=== PATIENT | female | born 1980 | race Caucasian/White ===

== ENCOUNTER → 2017-07-03 | Outpatient (CLI) | payer OTHER | LOC: FIMAGING 09:42 | PROVIDERS: ATTEND Obstetrics & Gynecology | DX: O09.522 Supervision of elderly multigravida, second trimester (principal); Z3A.19 19 weeks gestation of pregnancy ==

== ENCOUNTER → 2017-08-08 | Outpatient (CLI) | payer OTHER | LOC: FIMAGING 08:24 | PROVIDERS: ATTEND Obstetrics & Gynecology | DX: O09.522 Supervision of elderly multigravida, second trimester (principal); O34.219 Maternal care for unspecified type scar from previous cesarean delivery; Z3A.24 24 weeks gestation of pregnancy ==

== ENCOUNTER 2017-09-29 18:15 | Observation (INO) | payer OTHER | END 2017-09-29 20:00 | disposition home or self-care (01) | LOC: FLD 18:15 | PROVIDERS: ADMIT Obstetrics & Gynecology; ATTEND Obstetrics & Gynecology | DX: O99.89 Other specified diseases and conditions complicating pregnancy, childbirth and the puerperium (principal); Z3A.32 32 weeks gestation of pregnancy | CPT/HCPCS: G0378 ×2 ==

== ENCOUNTER 2017-11-11 04:11 | Inpatient (IN) | payer OTHER ==
--- NOTE | 2017-10-25 15:35 | GHP ---
[f rep st] PREOP HISTORY AND PHYSICAL DATE OF PLANNED PROCEDURE: 11/16/2017. PLANNED PROCEDURE: Repeat low transverse section. INDICATIONS: Patient is a 36-year-old 4, para 1-0-2-1, who will be 39+ weeks gestation. She has a history of a previous low transverse section for arrest of descent and desires a repe at section. The patient's estimated date of confinement is 11/23/2017, dated by last menstr ual period consistent with a 7-week ultrasound. Patient initiated care at [facility]. She transferred to [facility] at 22 weeks' gestation. Her has been uncom plicated. She has had several episodes of decreased movement, for which she has had increased surveillance in , but baby has returned to its normal baseline movement status. PAST MEDICAL HISTORY: Negative. MEDICATIONS: vitamins. PAST SURGICAL HISTORY: section, termination of , oral surgery x2, and tonsillectom y. ALLERGIES: No known drug allergies. SOCIAL HISTORY: Patient is . She lives with her and their other child. She denies t obacco, alcohol, or drug use. FAMILY MEDICAL HISTORY: Noncontributory. 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 Periods every 28-32 days, lasting 4 days. She is a 4, pa ra 1-0-2-1. In 2003, she had a voluntary termination of . In 11/2007, she had a primary lo w transverse section of a 7-pound 14-ounce male infant. Diagnosis was for arrest of descent . Baby was occiput posterior, and patient had pushed for 3 hours. In 2016, she had a chemical pregn tomas, which resolved spontaneously, and current has been uncomplicated. Patient does have a history of abnormal Pap smears, but she has not had any procedures. She denies any history of any other sexually transmitted diseases besides HPV. REVIEW OF SYSTEMS: Ten-point review of systems is negative. Positive movement. No loss of fl uid. No vaginal bleeding. Denies any headache or changes in vision. PHYSICAL EXAMINATION: VITAL SIGNS: Stable. GENERAL APPEARANCE: Is alert and oriented x3. PSYCH: Exam is appropriate affect. MUSCULOSKELETAL: Grossly intact. NECK: Mobile and supple. HEART: R ate is regular/regular. LUNGS: Clear to auscultation bilaterally. ABDOMEN: Gravid, nondistended, nontender. No organomegaly is noted. EXTREMITIES: Reveal no calf tenderness or edema. LABORATORY DATA: labs: Blood type A positive. Antibody screen negative. Rubella immune. GBS is pending. HBsAg negative. HIV negative. Her 50 g glucose was 93. ASSESSMENT AND PLAN: A 36-year-old 4, para 1-0-2-1, who will be 39 weeks' gestation, who has a history of a previous low transverse section, who declines trial of labor and plans for a repeat section. She declines tubal ligation. Risks and benefits were reviewed with the april serra, and the patient has been properly consented. /[id number]/MODL
[2017-11-11] MEDS ORDERED: OXYTOCIN/RINGERS LACTATE 1,000 ML IV PRN (04:32)
[2017-11-11] MEDS ORDERED: IBUPROFEN 600 MG TAB PO PRN (04:32)
[2017-11-11] MEDS ORDERED: LIDOCAINE 1% 300 MG/30 ML SDV SC PRN (04:32)
[2017-11-11] MEDS ORDERED: LR 1,000 ML IV PRN (04:32)
[2017-11-11] MEDS ORDERED: EPSOM SALT 454 GM TP PRN (04:32)
[2017-11-11] MEDS ORDERED: MISOPROSTOL 200 MCG TAB PR PRN (04:32)
[2017-11-11] MEDS ORDERED: OLIVE OIL 118 ML BTL MISC PRN (04:32)
[2017-11-11] MEDS ORDERED: TERBUTALINE SULFATE 1 MG/ML VIAL IV PRN (04:32)
[2017-11-11] MEDS ORDERED: LR 500 ML IV ONE (04:50)
[2017-11-11] MEDS ORDERED: ceFAZolin 2 GM/DEXTROSE 100 ML IV ONE (04:50)
[2017-11-11] MEDS ORDERED: LR 1,000 ML IV SCH (05:00)
[2017-11-11] MEDS ORDERED: TERBUTALINE SULFATE 1 MG/ML VIAL ONE (05:32)
[2017-11-11] MEDS ORDERED: MISOPROSTOL 200 MCG TAB ONE (05:32)
[2017-11-11] MEDS ORDERED: AMMONIA AROMATIC 1 EACH AMP IH ONE (05:32)
[2017-11-11] MEDS ORDERED: OXYTOCIN 10 UNIT/ML VIAL ONE (05:32)
--- NOTE | 2017-11-11 05:34 | PDGENHP ---
History and Physical - Chief Complaint spont rupture of membranes - History of Present Illness 36 at 38w3d with gush of fluid at 0307. Had pelvic pressure last evening, but then awoke to void, gush of fluid, and contractions started shortly after that. course c/b hx of prior C/S - desires repeat and had low lying anterior placenta - moved away from os by 28 wk US. Had care with [facility] until transfer at 22 weeks. Good FM, no VB. NO ssx PIH. Son is 10 yr old. labs all normal, including neg NIPT Rubella Imm A Pos GBS neg Tdap given 10/05/17 Ob hx: 12/20/07 40 wk LTCS after pushing x 3 hr, male, 7#14oz PMH: migraines, anxiety, right clavicle fracture x2 PSH: 11/26 C/S, tonsillectomy, wisdom teeth Medications: PNV + DHA All: NKDA Soc: -/-/-, husb = Will. O: vs 36.2 101 115/78 gen - pleasant female, NAD CV - RRR chest - CTAB abd - gravid, soft, NT when not marco a. ext - calves NT, no edema SVE - 3/60/-2 A/P: 36 with SROM, early labor, prior C/S - desires elective repeat. WRitten informed consent obtained, will proceed with R-C/S when labs have returned. Rosana Oneill MD, FACOG [facility] History Information - Allergies/Home Medication List Allergies/Adverse Reactions: No Known Allergies Allergy (Unverified 09/29/17 18:30) Home Medications: [place] 3 500 Softgel 1 tab PO DAILY 09/29/17 [Last Taken 09/28/17 21:00] Dha 1 tab PO DAILY 09/29/17 [Last Taken 09/28/17 21:00] I have personally reviewed and updated: family history, medical history, social history, surgical history Review of Systems Review of Systems: ROS: 10pt was reviewed & negative except for what was stated in HPI & below Physical Exam Physical Exam:
[2017-11-11 05:35] LABS: PLATELET COUNT 216 10^3/uL (150-400)
--- NOTE | 2017-11-11 06:24 | PREANESOB ---
Obstetric Pre-Anesthesia Info - General Info Proposed Procedure: Repeat C section NPO Start Time: 21:00 : 4 Para: 1 DYLON: 11/23/17 Gestational Age: 38 week(s) and 2 day(s) - Info Status: Full Term Monitors: External FHR Pattern: Reassuring - Labor Status Cervical Dilation per last OB SVE: 3 Time of last SVE per OB: 06:12 Rupture of Membranes Time: 03:00 Amniotic Fluid Color: Clear PIH: No Magnesium Sulfate in Use: No Section History: Repeat Labor Epidural: No Anesthesia Allergies/Adverse Reactions: Allergy/AdvReac Type Severity Reaction Status Date / Time No Known Allergies Allergy Unverified 09/29/17 18:30 Home Medications: Medication Instructions Recorded [place] 3 500 Softgel 1 tab PO DAILY 09/29/17 Dha 1 tab PO DAILY 09/29/17 Visit Medications: Generic Name Dose Route Start Last Admin Trade Name Freq PRN Reason Stop Dose Admin Lactated Ringer's 1,000 mls @ 0 mls/hr 11/11/17 04:32 Lr IV 11/12/17 04:31 PRN PRN SEE PROTOCOL CONDITIONS Protocol Per Protocol Oxytocin/Lactated Ringer's 1,000 mls @ 125 mls/hr 11/11/17 04:32 Pitocin 20 Units/Lr (Premix) IV PRN PRN Post bleeding Lactated Ringer's 1,000 mls @ 125 mls/hr 11/11/17 05:00 Lr IV 11/12/17 04:59 CONT DELMA Ibuprofen 600 mg 11/11/17 04:32 Motrin PO ONCE PRN post , pain Lidocaine HCl 300 mg 11/11/17 04:32 Lidocaine Hcl 1% SC 05/10/18 04:31 ONCE PRN episiotomy Magnesium Sulfate 454 gm 11/11/17 04:32 Epsom Salt TP 05/10/18 04:31 Q1H PRN perineal discomfort Misoprostol 800 - 1,000 mcg 11/11/17 04:32 Cytotec FL ONCE PRN Vaginal Atony/Bleeding [place] Oil 118 ml 11/11/17 04:32 Sweet Oil MISC 05/10/18 04:31 ONCE PRN perineal massage Terbutaline Sulfate 0.25 mg 11/11/17 04:32 Brethine IV 05/10/18 04:31 ONCE PRN Tachysystole Discontinued Medications Generic Name Dose Route Start Last Admin Trade Name Ranjan PRN Reason Stop Dose Admin Ammonia (Aromatic Spirit) Confirm 11/11/17 05:32 Ammonia Aromatic Administered 11/11/17 05:33 Dose 1 each IH .STK-MED ONE Cefazolin Sodium/Dextrose 100 mls @ 200 mls/hr 11/11/17 04:50 Ancef 2 Gm IV 11/11/17 05:19 ONCALL ONE Protocol Lactated Ringer's 500 mls @ 0 mls/hr 11/11/17 04:50 Lr IV 11/11/17 04:51 ONCE ONE As Directed Misoprostol Confirm 11/11/17 05:32 Cytotec Administered 11/11/17 05:33 Dose 1,000 mcg .ROUTE .STK-MED ONE Oxytocin Confirm 11/11/17 05:32 Pitocin Administered 11/11/17 05:33 Dose 40 unit .ROUTE .STK-MED ONE Terbutaline Sulfate Confirm 11/11/17 05:32 Brethine Administered 11/11/17 05:33 Dose 1 mg .ROUTE .STK-MED ONE - Anesthesia History Response to Local Anesthetics: Normal Family Anesthesia History: Negative - Social History Substance Use/Abuse: Denies - Vital Signs Blood Pressure: 115/78 Heart Rate: 101 Respiratory Rate: 20 Height/Weight (Nursing): Height 160.02 cm Weight: 71 kg - Focused Exam Neck exam: FROM Mallampati Score: Class 1 Mouth exam: normal dental/mouth exam Pulmonary: no respiratory distress, no rales or rhonchi Cardiovascular: regular rate and rhythym, no murmur, rub, or gallop Labs: 11/11/17 05:20 - Plan Consent Signed and on Chart: Yes
[2017-11-11] MEDS ORDERED: CITRIC ACID/SODIUM CITRATE 30 ML UDCUP ONE (06:25)
[2017-11-11] MEDS ORDERED: morphINE PF 5 MG/10 ML INJ ONE (06:34)
[2017-11-11] MEDS ORDERED: PHENYLEPHRINE HCL 100 MCG/ML SYR ONE (06:35)
[2017-11-11] MEDS ORDERED: GLYCOPYRROLATE 0.2 MG/1 ML VIAL ONE (07:05)
[2017-11-11] MEDS ORDERED: OXYTOCIN 100 UNITS/10 ML VIAL ONE (07:30)
[2017-11-11] MEDS ORDERED: fentaNYL 100 MCG/2 ML INJ ONE (07:44)
[2017-11-11] MEDS ORDERED: SIMETHICONE 80 MG TAB CHEW PO PRN (08:13)
[2017-11-11] MEDS ORDERED: PROMETHAZINE HCL 25 MG/ML INJ IVP PRN (08:13)
[2017-11-11] MEDS ORDERED: oxyCODONE IR 5 MG TAB PO PRN (08:17)
--- NOTE | 2017-11-11 08:22 | POSTOPPROG ---
Post Op Note Date of Operation: 11/11/17 Surgeon: Rosana Oneill Repair Order Clerk: Rowena Vaughan MD needed for adequate retraction and exposure Anesthesiologist: Hui Quezada MD Anesthesia: Spinal Pre-op Diagnosis: elective repeat section Post-op Diagnosis: same Indication: rupture of membranes and onset of labor at 38w3d Procedure: repeat low transverse section Findings: normal appearing uterus, tubes and ovaries, female infant 3112g Inf/Abcess present in the surg proc area at time of surgery?: No EBL: 500-1000 Total fluids administered: 800 Complications: none
[2017-11-11] MEDS ORDERED: NALOXONE HCL 0.4 MG/ML INJ IVP PRN (08:46)
[2017-11-11] MEDS ORDERED: ONDANSETRON 4 MG/2 ML VIAL IVP PRN (08:46)
[2017-11-11] MEDS ORDERED: HYDROmorphONE/DILAUDID 1 MG/ML INJ IVP PRN (08:49)
[2017-11-11] MEDS ORDERED: fentaNYL 100 MCG/2 ML INJ IVP PRN (08:49)
--- NOTE | 2017-11-11 09:16 | GOP ---
[f rep st] OPERATIVE REPORT DATE OF OPERATION: 11/11/2017 SURGEON: Rosana Oneill MD BI CONSULTANT: Rowena Vaughan MD, needed for adequate retraction and exposure. PREOPERATIVE DIAGNOSIS: Elective repeat section in the setting of rupture of membranes and onset of labor. POSTOPERATIVE DIAGNOSIS: Elective repeat section in the setting of rupture of membranes and onset of labor. PROCEDURE PERFORMED: Repeat elective low transverse section. SURGEON: Rosana Oneill MD COMPLICATIONS: None. FLUIDS REPLACED: 2200 mL. URINE OUTPUT: 50 mL. FINDINGS: Normal appearing uterus, tubes, ovaries, delivery of a female , 3112g, Apgars 8 at 1 minute, 8 at 5 minutes, from cephalic NIKIA presentation ESTIMATED BLOOD LOSS: 800 mL. INDICATIONS: A 36-year-old 4, para 1-0-2-1, who presented in early labor after spontaneous rupture of membranes at 38 weeks and 3 days gestation. She has a history of a prior section and desired a repeat section. Her course was otherwise uncomplicated. Written informed consent was obtained, and the patient was taken to the operating room. DESCRIPTION OF PROCEDURE: Once spinal anesthetic was deemed adequate, she was placed in the dorsal supine position with a leftward tilt. A Gorman catheter was placed. The abdomen was sterilely prepped and draped in a standard fashion. A time out was performed. She had just received 2 gm of Ancef IV. A Pfannenstiel skin incision was made and taken down sharply to the fascia through the previous skin incision. The fascial incision was extended laterally in a sharp fashion. The rectus muscles were in the midline and the peritoneum was entered bluntly. A bladder flap was created in standard fashion and the bladder blade was place over the flap. A hysterotomy was made and extended laterally in a blunt fashion. Release of clear fluid was noted. The infant's vertex was able to be grasped and elevated through the incision. Bulb suction was performed. With fundal pressure, the remainder of the infant was able to be delivered without difficulty. One nuchal cord was reduced prior to delivery. Delayed cord clamping for 1 minute was performed. During this time, the baby was bulb suctioned and dried. The cord was then cut and clamped, and the infant was handed to the awaiting nurse practitioner. Cord blood was obtained with the cord blood collection kit brought by the patient. The placenta was then delivered with the assistance of uterine massage. The uterus was exteriorized and cleared of all clots and debris x 2. The hysterotomy was repaired in a running locked fashion with 0 Monocryl. A second imbricating layer was placed. Cautery was used to obtain hemostasis at different areas. On the anterior surface of the uterus just cephalad to the hysterotomy, a hematoma was noted. A few [id number] sutures were placed across this in order to obtain hemostasis. Hematoma was noted to then be stable. The uterus was replaced into the abdomen. The gutters were cleared of all clots and debris. Excellent hemostasis was noted. The fascia was closed with 0 PDS in a running fashion. Franchesca's fascia was closed with 3-0 Monocryl in a running fashion. The skin was closed with 4-0 Monocryl in a running subcuticular fashion. The skin was then covered with Steri-Strips and a dressing was placed. Sponge, lap and needle counts were correct x 2. The patient was taken to the recovery room in stable condition. /[id number]/MODL MTDD
[2017-11-11] MEDS ORDERED: IBUPROFEN 600 MG TAB PO SCH (12:00)
[2017-11-11] MEDS: ACETAMINOPHEN 325 MG TAB PO SCH ×2 (13:57→18:05)
[2017-11-11] MEDS: KETOROLAC 30 MG/1 ML SDV IVP SCH ×2 (14:04→19:55)
[2017-11-12] MEDS: KETOROLAC 30 MG/1 ML SDV IVP SCH ×2 (02:12→07:52)
[2017-11-12] MEDS: ACETAMINOPHEN 325 MG TAB PO SCH ×5 (05:25→17:39)
[2017-11-12] MEDS: DOCUSATE SODIUM 100 MG CAP PO PRN ×2 (07:53→20:13)
--- NOTE | 2017-11-12 09:03 | OBPP ---
Progress Note Assessment/Plan: Assessment:POD #1 s/p Elective R-C/S at 38w3d in setting of SROM and early labor - doing great. Plan:Continue routine post op cares. Ambulation encouraged, support in place. Bandar Oneill MD 11/12/17 08:50 Subjective/ Course: 11/12/17 08:51 Doing well. Was able to get some sleep last night. Is excited to be up and out of bed this morning. Has already voided without difficulty after catheter removed this morning. NO lightheadedness or dizziness today. + flatus, josh reg diet without N/V. going well so far. Is a little worried about left inverted nipple as thought she may have had yeast prior to delivery, but has been keeping it clean and has no pain currently. Objective: 11/12/17 05:15 Patient ABO/Rh A POSITIVE 11/11/17 05:20 Temp Pulse Resp BP Pulse Ox 36.9 C 94 16 95/61 L 94 11/12/17 04:45 11/12/17 04:45 11/12/17 04:45 11/12/17 04:45 11/12/17 04:45 Gen - pleasant, NAD CV - RRR chest - CTAB abd - soft, NT, + BS, incision - C/D/I with steri strips, fundus firm u-2 ext - no calf tenderness, no edema Uterine Position/Fundal Height: Umbilicus -2 Uterine Tone: Firm
[2017-11-12] MEDS: IBUPROFEN 600 MG TAB PO SCH ×2 (13:44→20:13)
--- NOTE | 2017-11-12 14:46 | POSTANESTH ---
Post Anesthetic Evaluation Cardiovascular Status: Normal, Stable Respiratory Status: Normal, Stable Level of Consciousness/Mental Status: Can Participate in Eval Pain Control: Adequate, Prn Tx Ordered Nausea/Vomiting Control: Adequate, Prn Tx Ordered Complications Possibly Related to Anesthesia: None Noted (Standing. No PEREZ. Spinal site dry.)
[2017-11-13] MEDS: ACETAMINOPHEN 325 MG TAB PO SCH ×2 (00:08→14:02)
[2017-11-13] MEDS: IBUPROFEN 600 MG TAB PO SCH ×4 (06:28→18:05)
[2017-11-13] MEDS: DOCUSATE SODIUM 100 MG CAP PO PRN (08:07)
[2017-11-13 09:54] VITALS: BP 98/69
--- NOTE | 2017-11-13 13:29 | OBPP ---
Progress Note Assessment/Plan: Assessment: POD2 s/p scheduled RLTCS. VS WNL and stable, post-op labs reassuring. BF going well, pain controlled. OK for dc. Incision looks like atopic skin rxn, will monitor that. Dc now, no narcs, f/u office 2 and 6 wks. Rh positive, Rubella immune.GBS neg. JM Subjective/ Course: 11/12/17 08:51 Doing well. Was able to get some sleep last night. Is excited to be up and out of bed this morning. Has already voided without difficulty after catheter removed this morning. NO lightheadedness or dizziness today. + flatus, josh reg diet without N/V. going well so far. Is a little worried about left inverted nipple as thought she may have had yeast prior to delivery, but has been keeping it clean and has no pain currently. 11/13/17 20:33 Rosa Maria is doing very well this morning. Pain well controlled with just ibuprofen , no narcotics. BF going well, incision not bothering her but does have some skin irritation presumably from adhesive on the right corner of incision. Would be interested in dc'ing home if possible. Objective: 11/12/17 05:15 Patient ABO/Rh A POSITIVE 11/11/17 05:20 Temp Pulse Resp BP Pulse Ox 36.2 C 90 14 98/69 L 93 11/13/17 08:00 11/13/17 08:00 11/13/17 08:00 11/13/17 08:00 11/13/17 08:00 WBC 12.75 10^3/uL (3.80-9.50) H 11/11/17 05:20 RBC 4.02 10^6/uL (4.18-5.33) L 11/11/17 05:20 Hgb 12.9 g/dL (12.6-16.3) 11/11/17 05:20 Hct 31.3 % (38.0-47.0) L 11/12/17 05:15 MCV 93.5 fL (81.5-99.8) 11/11/17 05:20 MCH 32.1 pg (27.9-34.1) 11/11/17 05:20 MCHC 34.3 g/dL (32.4-36.7) 11/11/17 05:20 RDW 12.3 % (11.5-15.2) 11/11/17 05:20 Plt Count 216 10^3/uL (150-400) 11/11/17 05:20 MPV 10.5 fL (8.7-11.7) 11/11/17 05:20 Neut % (Auto) Not Reported 11/11/17 05:20 Lymph % (Auto) Not Reported 11/11/17 05:20 [place] % (Auto) Not Reported 11/11/17 05:20 Eos % (Auto) Not Reported 11/11/17 05:20 Baso % (Auto) Not Reported 11/11/17 05:20 Nucleat RBC Rel Count Not Reported 11/11/17 05:20 Absolute Neuts (auto) Not Reported 11/11/17 05:20 Absolute Lymphs (auto) Not Reported 11/11/17 05:20 Absolute Monos (auto) Not Reported 11/11/17 05:20 Absolute Eos (auto) Not Reported 11/11/17 05:20 Absolute Basos (auto) Not Reported 11/11/17 05:20 Absolute Nucleated RBC Not Reported 11/11/17 05:20 Immature Gran % Not Reported 11/11/17 05:20 Seg Neutrophils % 55.4 % 11/11/17 05:20 Band Neutrophils % 26.7 % 11/11/17 05:20 Lymphocytes % 14.9 % 11/11/17 05:20 Monocytes % 1.0 % 11/11/17 05:20 Eosinophils % 0 % 11/11/17 05:20 Basophils % 1.0 % 11/11/17 05:20 Metamyelocytes % 0 % 11/11/17 05:20 Myelocytes % 1.0 % 11/11/17 05:20 Promyelocytes % 0 % 11/11/17 05:20 Blast Cells % 0 % 11/11/17 05:20 Immature Gran # Not Reported 11/11/17 05:20 Absolute Seg Neuts 7.06 10^/uL (1.70-6.50) H 11/11/17 05:20 Absolute Band Neuts 3.40 10^3/uL (0.00-0.70) H 11/11/17 05:20 Absolute Lymphocytes 1.90 10^3/uL (1.00-3.00) 11/11/17 05:20 Absolute Monocytes 0.13 10^3/uL (0.30-0.80) L 11/11/17 05:20 Absolute Eosinophils 0.00 10^3/uL (0.03-0.40) L 11/11/17 05:20 Absolute Basophils 0.13 10^3/uL (0.02-0.10) H 11/11/17 05:20 Absolute Metamyelocyte 0.00 10^3/mL (0.00-0.00) 11/11/17 05:20 Absolute Myelocytes 0.13 10^3/mL (0.00-0.00) H 11/11/17 05:20 Absolute Promyelocytes 0.00 10^3/uL (0.00-0.00) 11/11/17 05:20 Absolute Plasma Cells 0.00 10^3/uL (0.00-0.00) 11/11/17 05:20 Atypical Lymphocytes 1+ H 11/11/17 05:20 Absolute Blast Cells 0.00 10^3/uL (0.00-0.00) 11/11/17 05:20 Plasma Cells % 0 % 11/11/17 05:20 Toxic Granulation PRESENT H 11/11/17 05:20 Platelet Estimate ADEQUATE (ADEQ) 11/11/17 05:20 Polychromasia 1+ H 11/11/17 05:20 Tear Drop Cells 1+ H 11/11/17 05:20 Smear Review By Damaris HERNANDEZ MD 11/11/17 05:20 Patient ABO/Rh A POSITIVE 11/11/17 05:20 Antibody Screen NEGATIVE 11/11/17 05:20 Uterine Position/Fundal Height: At Umbilicus Uterine Tone: Firm Physical Exam - Physical Exam General Appearance: alert, no apparent distress Abdomen: incision (CDI with steri-strips, small linear areas of erythema/ irritation in distribution of bandage) Extremities: normal range of motion, non-tender, pedal edema
--- NOTE | 2017-11-13 13:55 | OBGCSDC ---
General Delivery Information - General Info : 4 Para: 1 Abortions: 2 Type: Repeat (Scheduled) L&D Analgesia/Anesthesia Type: Spinal Admission Date: 11/11/17 Labs: Patient ABO/Rh A POSITIVE 11/11/17 05:20 Hct 31.3 % (38.0-47.0) L 11/12/17 05:15 - Hospital Course : 11/12/17 08:51 Doing well. Was able to get some sleep last night. Is excited to be up and out of bed this morning. Has already voided without difficulty after catheter removed this morning. NO lightheadedness or dizziness today. + flatus, josh reg diet without N/V. going well so far. Is a little worried about left inverted nipple as thought she may have had yeast prior to delivery, but has been keeping it clean and has no pain currently. Vaginal - Diagnosis Amniotic Fluid Color: Clear - Delivery Providers Surgeon: Rosana Oneill Australian Rules Footballer: Rowena Vaughan - Delivery Number of Prior Sections: 1 Indications for Current Section: Elective/Repeat Surgical Procedures: Scheduled Intra-op Complications: None EBL: 800 Data DYLON: 11/23/17 Gestational Age: 38 week(s) and 4 day(s) [place] Delivery Date: 11/11/17 Delivery Time: 07:22 Sex of : Female [place] Weight (gm): 3112 g Score (1 Min): 8 Score (5 Min): 8 Discharge Information - Discharge Information Condition: Good Instruction/Follow Up: See Instruction Sheet, Two Weeks, Four Weeks, Six Weeks
== END 2017-11-13 18:40 | disposition home or self-care (01) | DRG 766 ==
LOC: FLD 04:11 → OBSVTOIN 04:32 → FOB 10:22
PROVIDERS: ADMIT Hospitalist; ATTEND Obstetrics & Gynecology
PROC: 10D00Z1 Extraction of Products of Conception, Low, Open Approach (ICD-10-PCS; principal; 2017-11-11)
DX: O75.82 Onset (spontaneous) of labor after 37 completed weeks of gestation but before 39 completed weeks gestation, with delivery by (planned) cesarean section (principal); O34.211 Maternal care for low transverse scar from previous cesarean delivery; Z3A.38 38 weeks gestation of pregnancy; Z37.0 Single live birth
CPT/HCPCS: J0690; J1885; J2274; J2370; J2590; J3010; J3105

== ENCOUNTER → 2017-11-27 | Outpatient (CLI) | payer OTHER | LOC: FLACT 13:45 | PROVIDERS: ATTEND Hospitalist | DX: O92.4 Hypogalactia (principal) | CPT/HCPCS: G0463 ==